=== PATIENT | female | born 1935 | race Caucasian/White ===

== ENCOUNTER 2020-03-20 20:24 | Inpatient (IN) | payer MEDICARE, OTHER ==
[~2020-03-20] VITALS: Ht 152.4 cm; Wt 50.8 kg
[2020-03-20] MEDS ORDERED: OLANZAPINE 10 MG VIAL IM ONE ×2 (20:31→20:45)
[2020-03-20] MEDS ORDERED: DIVA250T4 PO (20:56)
[2020-03-20] MEDS ORDERED: NA P133E RC (20:56)
[2020-03-20] MEDS ORDERED: FOLI1TAB16 PO (20:56)
[2020-03-20] MEDS ORDERED: BISA10SU61 RC (20:56)
[2020-03-20] MEDS ORDERED: METO25TA6 PO (20:56)
[2020-03-20] MEDS ORDERED: MAGN400O6 PO (20:56)
[2020-03-20] MEDS ORDERED: ACET-2605 PO (20:56)
[2020-03-20] MEDS ORDERED: GLUC1VIA IM (20:56)
[2020-03-20] MEDS ORDERED: [UNRECOGNIZED DRUG - CODE] OP (20:56)
[2020-03-20] MEDS ORDERED: APIX2.5T PO (20:56)
[2020-03-20] MEDS ORDERED: DIGO125T PO (20:56)
[2020-03-20] MEDS ORDERED: ASCO500C18 PO (20:56)
[2020-03-20] MEDS ORDERED: ATOR10TA PO (20:56)
[2020-03-20] MEDS ORDERED: ACET325C7 PO (20:56)
[2020-03-20] MEDS ORDERED: QUET25TA PO ×2 (20:56)
[2020-03-20] MEDS ORDERED: AMIN30LI31 PO (20:56)
[2020-03-20] MEDS ORDERED: LEVO112T5 PO (20:56)
[2020-03-20] MEDS ORDERED: diphenhydrAMINE 50 MG/1 ML VIAL IM ONE (21:00)
[2020-03-20] MEDS ORDERED: diphenhydrAMINE 50 MG/1 ML VIAL ONE (21:02)
[2020-03-20 21:14] LABS: BASOPHILS % (AUTO) 0.4 % (0.0-2.0); EOSINOPHILS # (AUTO) 0.1 K/uL (0.0-0.7); EOSINOPHILS % (AUTO) 1.5 % (0.0-7.0); HEMATOCRIT 25.1 % (31.2-41.9); HEMOGLOBIN 8.4 g/dL (10.9-14.3); LYMPHOCYTES # (AUTO) 3.2 K/uL (20.0-40.0); LYMPHOCYTES % (AUTO) 33.7 % (20.5-51.5); MEAN CORPUSCULAR HEMOGLOBIN 26.5 uug (24.7-32.8); MEAN CORPUSCULAR HGB CONC 33 g/dL (32.3-35.6); MEAN CORPUSCULAR VOLUME 79.2 fL (75.5-95.3); MONOCYTES # (AUTO) 1.1 K/uL (2.0-10.0); MONOCYTES % (AUTO) 11.9 % (0.0-11.0); NEUTROPHILS % (AUTO) 52.5 % (38.5-71.5); PLATELET COUNT (AUTO) 209 K/uL (179-408); RED BLOOD CELL COUNT(AUTO) 3.17 MIL/uL (3.63-4.92); WHITE BLOOD COUNT (AUTO) 9.5 K/uL (3.8-11.8)
[2020-03-20 21:15] LABS: CARBON DIOXIDE 24 mmol/L (21-32); CHLORIDE 105 mmol/L (98-107); CREATININE 1.5 mg/dL (0.6-1.3); GLUCOSE 123 mg/dL (74-106); POTASSIUM 4.3 mmol/L (3.5-5.1); UREA NITROGEN, BLOOD 37 mg/dL (7-18)
[2020-03-20 21:20] LABS: ALANINE AMINOTRANSFERASE 17 U/L (14-59); ALKALINE PHOSPHATASE 32 U/L (50-136); ASPARTATE AMINOTRANSFERASE 14 U/L (15-37); BILIRUBIN,DIRECT 0.1 mg/dL (0.0-0.2); BILIRUBIN,TOTAL 0.3 mg/dL (0.2-1.0); ETHANOL < 3 MG/DL (0-0); TOTAL PROTEIN, SERUM 6.9 g/dL (6.4-8.2)
[2020-03-20 21:21] LABS: ACETAMINOPHEN < 2.0 ug/mL (10-30)
[2020-03-20 21:28] LABS: THYROID STIMULATING HORMONE 11.344 mIU/mL (0.358-3.740)
--- NOTE | 2020-03-20 21:50 | NUR ---
Inserted narayan catheter, pt tolerated procedure well, urine sample collected, sent to lab.
[2020-03-20 22:07] LABS: *BILIRUBIN,URIN NEGATIVE (NEGATIVE); *CLARITY,URINE CLEAR (CLEAR); *COLOR,URINE YELLOW (YELLOW); *KETONES,URINE NEGATIVE (NEGATIVE); *UROBILINOGEN,URINE 0.2 E.U./dl (NORMAL); LEUKOCYTE ESTERASE ,URINE TRACE (NEGATIVE); NITRITE, URINE NEGATIVE (NEGATIVE); UGLUCOSE NEGATIVE (NEGATIVE)
[2020-03-20 22:08] LABS: *BLOOD, URINE TRACE INTACT (NEGATIVE)
[2020-03-20 22:13] LABS: *AMPHETAMINE, URINE NEGATIVE (NEGATIVE); *BARBITURATE, URINE NEGATIVE (NEGATIVE); *CANNABINOID, URINE NEGATIVE (NEGATIVE); *COCCAINE, URINE NEGATIVE (NEGATIVE); *OPIATE, URINE NEGATIVE (NEGATIVE); *PHENCYCLIDINE SCREEN,URINE NEGATIVE (NEGATIVE)
[2020-03-20 22:25] LABS: BACTERIA,URINE NONE SEEN /HPF (NONE SEEN); SQUAMOUS EPITHELIAL CELL,UR FEW /HPF (NONE SEEN)
--- NOTE | 2020-03-20 22:30 | NUR ---
Spoke with patient's daughter, stated patient's a few days ago and since then for 3 days patient has been restless. Daughter, Camilla Phillips, left her phone number .
--- NOTE | 2020-03-20 23:03 | NUR ---
Called Huong Long RN PET for pt psych eval.
[2020-03-21] MEDS ORDERED: HALOPERIDOL LACTATE 5 MG/1 ML VIAL IM ONE (01:45)
--- NOTE | 2020-03-21 02:21 | NUR ---
Amy martinez in ED - 03/21/20 at 0315 by HÉCTOR Pt medically cleared by Dr. Sharma.
--- NOTE | 2020-03-21 02:52 | NUR ---
Called [facility] to page Shelly Ervin NP.
--- NOTE | 2020-03-21 02:55 | NUR ---
Dr. Sharma on panel call with Shelly Ervin NP.
[2020-03-21] MEDS ORDERED: ALBUTEROL SULFATE 8 GM HFA.AER.AD IH PRN (03:00)
[2020-03-21] MEDS: CEFTRIAXONE 1 G in IV DEXTROSE 5% 50 ML IV SCH ×3 (03:00→09:01)
[2020-03-21] MEDS ORDERED: ONDANSETRON 4 MG/2 ML VIAL IV PRN (03:00)
[2020-03-21] MEDS ORDERED: ACETAMINOPHEN 650 MG SUPP.RECT RC PRN (03:00)
[2020-03-21] MEDS ORDERED: BISACODYL 10 MG SUPP.RECT RC PRN (03:15)
--- NOTE | 2020-03-21 04:30 | NUR ---
Pt in bed, no acute signs of distress, awake, talking to herself.
--- NOTE | 2020-03-21 06:44 | NUR ---
Pt in bed, no acute signs of distress, awake, talking to herself.
--- NOTE | 2020-03-21 07:11 | NUR ---
Report given to Kathy lima.
--- NOTE | 2020-03-21 07:11 | NUR ---
Financial Accounting Manager assumes care- patient is awake, confuse, talking loudly to self in her emmon[place] language, respiration:easy, for admission to telemetry room 320, pending 1:1 sitter & an accepting RN/CHICKEN HANDLER@the 3rd floor. Per previous RN (Edis's report), this patient needs IV line before sending to 3rd floor, monitored closely. Comfort and safety measures maintained.
--- NOTE | 2020-03-21 07:13 | NUR ---
Per RN Edis (previous RN), this patient is not medically cleared for geriatric psych admission hence patient will got to telemetry room 320 for acute encephalopathy.
--- NOTE | 2020-03-21 08:12 | NUR ---
Patient is getting more agitated, screaming louder and intensely talking to self in foreign language. Dr Villa notified. Repositioning done, sips of water given, therapeutic touch given. Patient's daughter was updated as well.
[2020-03-21] MEDS ORDERED: LORAZEPAM 2 MG/1 ML VIAL IM ONE (08:15)
[2020-03-21] MEDS ORDERED: OLANZAPINE 10 MG VIAL IM ONE ×2 (08:15→08:18)
[2020-03-21] MEDS ORDERED: LORAZEPAM 2 MG/1 ML VIAL ONE (08:18)
[2020-03-21] MEDS ORDERED: CEFTRIAXONE /D5W 50ML IVPB **ER PYXIS IV ONE (08:32)
[2020-03-21] MEDS ORDERED: CARBOXYMETHYLCELLULOSE SODIUM OP SCH (09:00)
[2020-03-21] MEDS ORDERED: Medication Not On Formulary EA (Apixaban (Eliquis) 2.5 MG) PO SCH (09:00)
[2020-03-21] MEDS ORDERED: Medication Not On Formulary EA (Ascorbic Acid (Vitamin C) 500 MG) PO SCH (09:00)
--- NOTE | 2020-03-21 09:00 | NUR ---
IV Rocephin given thru left hand g20 angiocatheter, no adverse rxn seen.
--- NOTE | 2020-03-21 09:25 | NUR ---
Pt arrived in RM 320 awake but confused. Pt doesn't follow commands. On RA with no SOB or distress noted at this time. IV on left hand 20g flushed and patent. On tele Afib. Swallow evaluation done, able to swallow apple sauce with guidance. On 1:1 sitter for safety. Bed locked in lowest position with siderails 3xup, pt trying to get out of bed.
[2020-03-21] MEDS ORDERED: ALBUTEROL SULFATE 2.5 MG/3 ML NEBU NEB PRN (09:30)
--- NOTE | 2020-03-21 10:30 | NUR ---
Dr. Gonzalez called in through zoom for consultation.
[2020-03-21 10:41] VITALS: BP 148/84
[2020-03-21] MEDS: LEVOTHYROXINE SODIUM 112 MCG TABLET PO SCH (10:47)
[2020-03-21] MEDS: DIVALPROEX 250 MG TABLET.DR PO SCH ×2 (10:47→17:09)
[2020-03-21] MEDS: METOPROLOL TARTRATE 25 MG TABLET PO SCH ×2 (10:48→20:55)
[2020-03-21] MEDS: FOLIC ACID 1 MG TABLET PO SCH (10:48)
[2020-03-21] MEDS: QUETIAPINE FUMARATE 25 MG TABLET PO SCH ×3 (10:48→20:26)
[2020-03-21] MEDS: ASCORBIC ACID 500 MG TABLET PO SCH (10:49)
[2020-03-21] MEDS: APIXABAN 5 MG TABLET PO SCH ×2 (10:50→20:27)
[2020-03-21 13:33] VITALS: BP 151/76
[2020-03-21] MEDS: POLYVINYL ALCOHOL OPHT DROPS 15 ML BOTTLE EACHEYE SCH ×2 (13:33→22:12)
[2020-03-21] MEDS: DIGOXIN 125 MCG TABLET PO SCH (13:33)
--- NOTE | 2020-03-21 18:00 | NUR ---
Pt in bed awake, confused on RA with no SOB or distress at this time. Pt able to tolerate pureed diet, aspiration precaution observed. On tele Afib with PVCs. IV on left hand 20g flushed and patent. On 1:1 sitter for safety, pt keeps moving on bed and sometimes trying to get out of bed. Bed locked in lowest position with siderails 2x up.
[2020-03-21] MEDS: IV NS 1000 ML 1,000 ML IV PRN (19:55)
[2020-03-21] MEDS: ATORVASTATIN 10 MG TABLET PO SCH (20:25)
[2020-03-21 23:56] VITALS: BP 147/70
[2020-03-22 06:00] VITALS: BP 129/59
[2020-03-22] MEDS: POLYVINYL ALCOHOL OPHT DROPS 15 ML BOTTLE EACHEYE SCH ×3 (06:02→22:00)
[2020-03-22] MEDS: LEVOTHYROXINE SODIUM 112 MCG TABLET PO SCH (06:02)
--- NOTE | 2020-03-22 06:15 | NUR ---
Pt asleep arousable to light pain, confused on RA with no SOB or distress at this time. On tele controlled Afib. IV on left hand 20g got infiltrated, removed, applied pressure d/t Eliquis. No signs of bleeding. Aspiration and safety precaution in place. Will endorse
[2020-03-22 07:04] LABS: BASOPHILS % (AUTO) 0.6 % (0.0-2.0); EOSINOPHILS # (AUTO) 0.3 K/uL (0.0-0.7); HEMOGLOBIN 9.6 g/dL (10.9-14.3); LYMPHOCYTES # (AUTO) 1.6 K/uL (20.0-40.0); LYMPHOCYTES % (AUTO) 31.2 % (20.5-51.5); MEAN CORPUSCULAR HEMOGLOBIN 26.3 uug (24.7-32.8); MEAN CORPUSCULAR HGB CONC 33 g/dL (32.3-35.6); MEAN CORPUSCULAR VOLUME 79.8 fL (75.5-95.3); MONOCYTES # (AUTO) 0.7 K/uL (2.0-10.0); MONOCYTES % (AUTO) 12.9 % (0.0-11.0); NEUTROPHILS # (AUTO) 2.6 K/uL (1.8-8.9); NEUTROPHILS % (AUTO) 50.3 % (38.5-71.5); PLATELET COUNT (AUTO) 194 K/uL (179-408); RED BLOOD CELL COUNT(AUTO) 3.64 MIL/uL (3.63-4.92); WHITE BLOOD COUNT (AUTO) 5.1 K/uL (3.8-11.8)
[2020-03-22 07:28] LABS: BILIRUBIN,TOTAL 0.6 mg/dL (0.2-1.0); CREATININE 0.8 mg/dL (0.6-1.3); PHOSPHOROUS 3.5 mg/dL (2.5-4.9); POTASSIUM 3.5 mmol/L (3.5-5.1); TOTAL PROTEIN, SERUM 6.8 g/dL (6.4-8.2)
--- NOTE | 2020-03-22 08:00 | NUR ---
RECEIVED PATIENT ASLEEP, AROUSABLE BY LIGHT PAIN. COVID 19 RESULTS 'NEGATIVE'. NO S/S OF DISTRESS OR SOB AT THIS TIME. CONTROLLED ATRIAL FIBRILLATION ON MONITOR AT 83 BPM. VSS. IV ON RIGHT FA 20 G, FLUSHING AND PATENT. SAFETY PRECAUTIONS IN PLACE.
[2020-03-22] MEDS: CEFTRIAXONE 1 G in IV DEXTROSE 5% 50 ML IV SCH (08:31)
[2020-03-22] MEDS: DIVALPROEX 250 MG TABLET.DR PO SCH ×3 (09:00→16:23)
[2020-03-22] MEDS: QUETIAPINE FUMARATE 25 MG TABLET PO SCH ×3 (09:00→21:00)
[2020-03-22] MEDS: APIXABAN 5 MG TABLET PO SCH ×3 (09:00→21:00)
[2020-03-22] MEDS: METOPROLOL TARTRATE 25 MG TABLET PO SCH ×3 (09:00→21:41)
[2020-03-22] MEDS: ASCORBIC ACID 500 MG TABLET PO SCH ×2 (09:00→10:01)
[2020-03-22] MEDS: FOLIC ACID 1 MG TABLET PO SCH ×2 (09:00→10:01)
[2020-03-22] MEDS ORDERED: ASCORBIC ACID 500 MG TABLET PO SCH (09:00)
--- NOTE | 2020-03-22 09:00 | NUR ---
0900 MEDICATIONS NOT GIVEN, PATIENT TOO LETHARGIC TO SWALLOW. DR. RODRIGUEZ MADE AWARE. WILL FOLLOW UP SWALLOW EVAL IN AM.
[2020-03-22 11:30] VITALS: BP 122/57
[2020-03-22] MEDS: DIGOXIN 125 MCG TABLET PO SCH (13:33)
--- NOTE | 2020-03-22 13:39 | NUR ---
MIDLINE INSERTION DONE OVER AT RIGHT UPPER ARM GZ 20
--- NOTE | 2020-03-22 13:40 | NUR ---
SEEN BY DR RODRIGUEZ AWARE OF PATIENT STATUS, WILL FOLLOW-UP SWALLOW EVAL IN AM
--- NOTE | 2020-03-22 13:52 | NUR ---
PATIENT STILL TO SEDATED. REMAINS SR ON MONITOR. SATURATING 98-99% ON RA. WARM AND DRY SKIN. AROUSABLE TO PAINFUL AND TACTILE STIMULI. WILL CONTINUE TO OBSERVE. IV FLUIDS INFUSING PER MD ORDER.
[2020-03-22 15:15] VITALS: BP 129/67
--- NOTE | 2020-03-22 16:23 | NUR ---
1700 MEDS NOT GIVEN PATIENT STILL TOO DROWSY TO TAKE MEDS PO. AWARE
--- NOTE | 2020-03-22 18:13 | NUR ---
RESTING WITH EYES CLOSED, EASILY AROUSED WITH PAINFUL STIMULI, WARM AND DRY SKIN. REMAINS CONTROLLED AFIB ON MONITOR.
[2020-03-22 19:30] VITALS: BP 127/58
--- NOTE | 2020-03-22 20:05 | NUR ---
Patient in bed asleep ,arousable with painful stimuli.On Ra saturating well at 97%.No s/s of distress noted.Midline in place on right upper arm and Iv site on Right hand patent and intact with Iv fluid NS running well at 90cc/hr.1:1 sitter at bedside for safety.
[2020-03-22] MEDS: ATORVASTATIN 10 MG TABLET PO SCH (21:40)
[2020-03-22] MEDS: IV NS 1000 ML 1,000 ML IV PRN (23:08)
[2020-03-23 00:15] VITALS: BP 147/73
--- NOTE | 2020-03-23 00:24 | NUR ---
Patient awake.Continue on tele monitor.Noted with periods of restlessness.Trying to get out of bed and pulling IV. Medications and snacks given.Tolerated well.HOB remained elevated.Aspiration precaution observed at all times.Changed and repositioned patient for comfort.Will continue to monitor.
[2020-03-23] MEDS: QUETIAPINE FUMARATE 25 MG TABLET PO SCH ×3 (00:48→16:17)
[2020-03-23] MEDS: ACETAMINOPHEN 325 MG TABLET PO PRN ×2 (05:16→10:34)
[2020-03-23] MEDS: POLYVINYL ALCOHOL OPHT DROPS 15 ML BOTTLE EACHEYE SCH ×3 (05:31→21:31)
[2020-03-23] MEDS: LEVOTHYROXINE SODIUM 112 MCG TABLET PO SCH (06:03)
[2020-03-23 06:04] VITALS: BP 124/78
[2020-03-23 07:20] LABS: BASOPHILS % (AUTO) 0.4 % (0.0-2.0); EOSINOPHILS # (AUTO) 0.2 K/uL (0.0-0.7); EOSINOPHILS % (AUTO) 2.5 % (0.0-7.0); HEMATOCRIT 25.4 % (31.2-41.9); HEMOGLOBIN 8.3 g/dL (10.9-14.3); LYMPHOCYTES # (AUTO) 1.6 K/uL (20.0-40.0); LYMPHOCYTES % (AUTO) 25.8 % (20.5-51.5); MEAN CORPUSCULAR HGB CONC 33 g/dL (32.3-35.6); MEAN CORPUSCULAR VOLUME 79.9 fL (75.5-95.3); MONOCYTES # (AUTO) 0.6 K/uL (2.0-10.0); MONOCYTES % (AUTO) 10.3 % (0.0-11.0); NEUTROPHILS # (AUTO) 3.7 K/uL (1.8-8.9); PLATELET COUNT (AUTO) 176 K/uL (179-408); RED BLOOD CELL COUNT(AUTO) 3.18 MIL/uL (3.63-4.92); WHITE BLOOD COUNT (AUTO) 6.1 K/uL (3.8-11.8)
[2020-03-23 07:49] LABS: MAGNESIUM 1.7 mg/dL (1.8-2.4); PHOSPHOROUS 2.6 mg/dL (2.5-4.9); POTASSIUM 3.9 mmol/L (3.5-5.1)
--- NOTE | 2020-03-23 08:00 | NUR ---
AWAKE ALERT BUT CONFUSED X3, RESTLESS AND AGITATED AND TRYING TO PULL LINES IN SPITE OF SITTER AT BEDSIDE. NO SS OF PAIN OR DISTRESS. CLOSELY MONITORED SR ON MONITOR
[2020-03-23] MEDS: CEFTRIAXONE 1 G in IV DEXTROSE 5% 50 ML IV SCH (08:25)
[2020-03-23] MEDS: FOLIC ACID 1 MG TABLET PO SCH (08:25)
[2020-03-23] MEDS: OLANZAPINE ZYDIS 5 MG TAB.RAPDIS PO PRN ×4 (08:25→22:55)
[2020-03-23] MEDS: ASCORBIC ACID 500 MG TABLET PO SCH (08:26)
[2020-03-23] MEDS: DIVALPROEX 250 MG TABLET.DR PO SCH ×2 (08:26→16:17)
[2020-03-23] MEDS: METOPROLOL TARTRATE 25 MG TABLET PO SCH ×2 (08:31→20:11)
[2020-03-23] MEDS: APIXABAN 5 MG TABLET PO SCH ×2 (08:37→20:08)
[2020-03-23] MEDS: IV NS 1000 ML 1,000 ML IV PRN (10:31)
[2020-03-23] MEDS: MAGNESIUM SULFATE/D5W 100 ML IV SCH ×2 (10:34→12:21)
--- NOTE | 2020-03-23 12:00 | NUR ---
spoked with daughter regarding patient status and need for mittens, daughter consented for safety
[2020-03-23] MEDS: DIGOXIN 125 MCG TABLET PO SCH (12:24)
[2020-03-23 12:41] VITALS: BP 144/62
[2020-03-23 15:28] VITALS: BP 141/58
[2020-03-23 19:30] VITALS: BP 128/98
[2020-03-23] MEDS: ATORVASTATIN 10 MG TABLET PO SCH (20:05)
[2020-03-23] MEDS: OLANZAPINE ZYDIS 5 MG TAB.RAPDIS PO SCH (20:05)
--- NOTE | 2020-03-23 21:30 | NUR ---
Patient in bed squirming around, not sleeping. No acute distress noted. Confused, not able to make needs known, mumbling. On Ra saturating well at 97%. Vitals WNL. ROMAN Midline running 90cc/hr NS. and Iv site on Right hand Infiltrated D/c. 1:1 sitter at bedside for safety. All medications administered, aspiration precautions, crushed and administered with apple sauce. will continue to monitor.
--- NOTE | 2020-03-23 22:58 | NUR ---
Patient awake, Noted to be restless.Trying to get out of bed and very agitated. Administered Zyprexa PRN Aspiration precaution observed at all times.Changed and repositioned patient for comfort.Will continue to monitor.
[2020-03-24] VITALS: BP 151/87
[2020-03-24 06:00] VITALS: BP 151/97
[2020-03-24] MEDS: LEVOTHYROXINE SODIUM 112 MCG TABLET PO SCH (06:09)
[2020-03-24] MEDS: POLYVINYL ALCOHOL OPHT DROPS 15 ML BOTTLE EACHEYE SCH ×3 (06:09→22:32)
--- NOTE | 2020-03-24 07:45 | NUR ---
RECEIVED PATIENT IN AWAKE ALERT TO SELF COOPERATIVE SHE IS NON VERBAL AT THIS TIME HAS ABRAHAM BRAVO HAS A SITTER QAT HER BEDSIDE FOR SAFETY ON ROOM AIR WITH NO SOB AT THIS TIME MID LINE SEEMS TO BE AN ISSUE PUMP BEEPING EVEN AFTER RESETTING WILL ATTEMPT TO RETAPE SOON POSSIBLE
--- NOTE | 2020-03-24 08:35 | NUR ---
SNF Contact: SW called [facility] ([phone]) and spoke to Kylah in the Admissions Department who stated that the pt is currently on a bed hold that has three days remaining (until 03/27/20). She stated that if the pt is not ready at the time of the bed hold, then they will accept the pt back if they have beds available at their facility.
[2020-03-24] MEDS: CEFTRIAXONE 1 G in IV DEXTROSE 5% 50 ML IV SCH (08:43)
[2020-03-24] MEDS: ASCORBIC ACID 500 MG TABLET PO SCH (08:44)
[2020-03-24] MEDS: DIVALPROEX 250 MG TABLET.DR PO SCH ×3 (08:44→16:58)
[2020-03-24] MEDS: OLANZAPINE ZYDIS 5 MG TAB.RAPDIS PO SCH ×2 (08:44→22:31)
[2020-03-24] MEDS: FOLIC ACID 1 MG TABLET PO SCH (08:44)
[2020-03-24] MEDS: METOPROLOL TARTRATE 25 MG TABLET PO SCH ×2 (08:47→22:31)
[2020-03-24] MEDS: APIXABAN 5 MG TABLET PO SCH ×2 (08:49→22:30)
--- NOTE | 2020-03-24 08:56 | NUR ---
AWAKE TOLERATING BREAKFAST SHE IS COMPLIANT WITH MEDICATIONS AND CARE AT THIS TIME WILL CONTINUE TO OBSERVE.
[2020-03-24 10:00] VITALS: BP 139/77
--- NOTE | 2020-03-24 12:35 | NUR ---
WOUND CARE CONSULT: PT SEEN FOR SKIN ASSESSMENT AND NOTED TO HAVE SACRAL SCAR, PRESENT ON ADMISSION. RECOMMENDATIONS MADE FOR SKIN PROTECTION. DISCUSSED WITH NURSING STAFF. WILL SEE PRN. IN AGREEMENT WITH PLAN OF CARE.
[2020-03-24] MEDS: DIGOXIN 125 MCG TABLET PO SCH (13:06)
[2020-03-24 14:44] VITALS: BP 141/83
--- NOTE | 2020-03-24 15:30 | NUR ---
CALL RECEIVED FROM DR SMALLWOOD AND UPDATED HIM ON PATIENTS BEHAVIOR SHE IS STILL AGITATED AND SOMEWHAT RESTLESS SHE IS COMPLIANT WITH MEDICATIONS AND CARE WILL CONTINUE TO PROVIDE SAFE AND THERAPEUTIC ENVIRONMENT AT ALL TIMES.
[2020-03-24] MEDS: IV NS 1000 ML 1,000 ML IV PRN (15:42)
[2020-03-24 17:48] VITALS: BP 109/71
--- NOTE | 2020-03-24 18:00 | NUR ---
RESTING WITH NO CHANGES IN PREVIOUS ASSESSMENTS.
[2020-03-24 19:30] VITALS: BP 109/71
--- NOTE | 2020-03-24 20:00 | NUR ---
Patient in bed still shows signs of agitation, squirming, No acute distress noted. Confused, not able to make needs known. On Ra saturating well at 98%, no SOB noted. Vitals WNL. ROMAN Midline running 90cc/hr NS. 1:1 sitter at bedside for safety. Will continue to monitor.
[2020-03-24] MEDS: ACETAMINOPHEN 325 MG TABLET PO PRN (22:29)
[2020-03-24] MEDS: ATORVASTATIN 10 MG TABLET PO SCH (22:30)
--- NOTE | 2020-03-24 23:30 | NUR ---
All medications administered,crushed and given with apple sauce, aspiration precautions maintained. Safety measure in place. Patient kept clean dry and comfortable. Repositioned on left lateral side. All needs attended to.
[2020-03-25] VITALS: BP 141/61
[2020-03-25] MEDS: OLANZAPINE ZYDIS 5 MG TAB.RAPDIS PO PRN (01:04)
--- NOTE | 2020-03-25 01:05 | NUR ---
Patient is not sleeping and still restless administered PRN Zyprexa. will monitor for effectiveness
[2020-03-25] MEDS: ZOLPIDEM 5 MG TABLET PO PRN (02:14)
--- NOTE | 2020-03-25 02:15 | NUR ---
Zyprexa not effective notified DR. Shelly Ervin that pt is restless/ agitated. New order Ambien 5mg PRN, administered will monitor for effective.
[2020-03-25] MEDS: IV NS 1000 ML 1,000 ML IV PRN ×2 (02:55→16:11)
--- NOTE | 2020-03-25 04:12 | NUR ---
No new changes, pt continues to move around in bed, very restless. Repositioned for comfort, changed, cleaned and kept dry. Safety measure in place. Snacks provided, hydration provided.
[2020-03-25 06:00] VITALS: BP 146/54
[2020-03-25] MEDS: LEVOTHYROXINE SODIUM 112 MCG TABLET PO SCH (06:19)
[2020-03-25] MEDS: POLYVINYL ALCOHOL OPHT DROPS 15 ML BOTTLE EACHEYE SCH ×3 (06:20→21:24)
--- NOTE | 2020-03-25 07:00 | NUR ---
RECEIVED PATIENT IN BED AWAKE SITTER AT BED SIDE VS ARE STABLE
[2020-03-25 07:30] VITALS: BP 161/76
[2020-03-25] MEDS: OLANZAPINE ZYDIS 5 MG TAB.RAPDIS PO SCH ×2 (07:33→21:21)
[2020-03-25] MEDS: METOPROLOL TARTRATE 25 MG TABLET PO SCH ×2 (07:34→21:21)
[2020-03-25] MEDS: DIVALPROEX 250 MG TABLET.DR PO SCH ×3 (07:34→16:05)
[2020-03-25] MEDS: FOLIC ACID 1 MG TABLET PO SCH (07:34)
[2020-03-25] MEDS: ASCORBIC ACID 500 MG TABLET PO SCH (07:34)
[2020-03-25] MEDS: APIXABAN 5 MG TABLET PO SCH ×2 (07:35→21:22)
[2020-03-25] MEDS: CEFTRIAXONE 1 G in IV DEXTROSE 5% 50 ML IV SCH (07:59)
[2020-03-25 10:04] LABS: BASOPHILS % (AUTO) 0.4 % (0.0-2.0); EOSINOPHILS # (AUTO) 0.3 K/uL (0.0-0.7); EOSINOPHILS % (AUTO) 4.7 % (0.0-7.0); HEMATOCRIT 26.7 % (31.2-41.9); HEMOGLOBIN 8.8 g/dL (10.9-14.3); LYMPHOCYTES # (AUTO) 1.4 K/uL (20.0-40.0); MEAN CORPUSCULAR HEMOGLOBIN 26.4 uug (24.7-32.8); MEAN CORPUSCULAR HGB CONC 33 g/dL (32.3-35.6); MEAN CORPUSCULAR VOLUME 80.1 fL (75.5-95.3); MONOCYTES # (AUTO) 0.6 K/uL (2.0-10.0); NEUTROPHILS # (AUTO) 3.9 K/uL (1.8-8.9); NEUTROPHILS % (AUTO) 62.9 % (38.5-71.5); PLATELET COUNT (AUTO) 190 K/uL (179-408); RED BLOOD CELL COUNT(AUTO) 3.33 MIL/uL (3.63-4.92); WHITE BLOOD COUNT (AUTO) 6.3 K/uL (3.8-11.8)
[2020-03-25 10:16] LABS: BILIRUBIN,TOTAL 0.3 mg/dL (0.2-1.0); CREATININE 0.8 mg/dL (0.6-1.3); MAGNESIUM 1.8 mg/dL (1.8-2.4); PHOSPHOROUS 3.1 mg/dL (2.5-4.9); POTASSIUM 4.2 mmol/L (3.5-5.1); TOTAL PROTEIN, SERUM 6.6 g/dL (6.4-8.2)
[2020-03-25] MEDS: DIGOXIN 125 MCG TABLET PO SCH (12:35)
[2020-03-25 12:36] VITALS: BP 147/65
[2020-03-25 16:00] VITALS: BP 152/66
--- NOTE | 2020-03-25 17:46 | NUR ---
No new changes, pt continues to move around in bed, very restless. Repositioned for comfort, changed, cleaned and kept dry. Safety measure in place. sitter at bed side
[2020-03-25 20:00] VITALS: BP 156/83
--- NOTE | 2020-03-25 20:00 | NUR ---
Received patient in bed with 1:1 sitter at bedside for safety. Patient is restless moving around in bed, but easy to redirect at this time. A/Ox1. No signs of acute distress noted. No s/s of pain or SOB. IVF running on right upper midline. Patient cleaned and repositioned. Daughter updated on patient condition. Safety measures initiated.
[2020-03-25] MEDS: ATORVASTATIN 10 MG TABLET PO SCH (21:21)
[2020-03-26] MEDS: ZOLPIDEM 5 MG TABLET PO PRN (01:41)
[2020-03-26] MEDS: IV NS 1000 ML 1,000 ML IV PRN (03:07)
[2020-03-26] MEDS: POLYVINYL ALCOHOL OPHT DROPS 15 ML BOTTLE EACHEYE SCH ×2 (06:23→14:35)
[2020-03-26] MEDS: LEVOTHYROXINE SODIUM 112 MCG TABLET PO SCH (06:23)
--- NOTE | 2020-03-26 07:30 | NUR ---
Awake, confused, restless. IVF infusing. 1:1 sitter at bedside.
[2020-03-26] MEDS: ASCORBIC ACID 500 MG TABLET PO SCH (08:23)
[2020-03-26] MEDS: OLANZAPINE ZYDIS 5 MG TAB.RAPDIS PO SCH (08:23)
[2020-03-26] MEDS: FOLIC ACID 1 MG TABLET PO SCH (08:23)
[2020-03-26] MEDS: CEFTRIAXONE 1 G in IV DEXTROSE 5% 50 ML IV SCH (08:23)
[2020-03-26] MEDS: DIVALPROEX 250 MG TABLET.DR PO SCH ×2 (08:23→12:44)
[2020-03-26] MEDS: METOPROLOL TARTRATE 25 MG TABLET PO SCH (08:28)
[2020-03-26] MEDS: ACETAMINOPHEN 325 MG TABLET PO PRN (08:41)
[2020-03-26] MEDS: APIXABAN 5 MG TABLET PO SCH (09:00)
[2020-03-26] MEDS ORDERED: METOPROLOL TARTRATE 25 MG TABLET PO ONE (11:45)
[2020-03-26] MEDS ORDERED: FUROSEMIDE 20 MG/2 ML VIAL IV ONE (11:45)
[2020-03-26] MEDS ORDERED: PIPERACILLIN SODIUM/TAZOBACTAM 3.375 G in IV DEXTROSE 5% 50 ML IV ONE (12:00)
[2020-03-26 12:46] VITALS: BP 147/64
[2020-03-26] MEDS: DIGOXIN 125 MCG TABLET PO SCH (12:46)
[2020-03-26] MEDS: OLANZAPINE ZYDIS 5 MG TAB.RAPDIS PO PRN (12:46)
[2020-03-26] MEDS ORDERED: DIVA250T4 PO (14:55)
[2020-03-26] MEDS ORDERED: ACET325T53 PO (14:55)
[2020-03-26] MEDS ORDERED: METO50TA16 PO (14:55)
[2020-03-26] MEDS ORDERED: LEVO125T8 PO (14:55)
[2020-03-26] MEDS ORDERED: OLAN5TAB6 PO ×2 (14:55)
[2020-03-26] MEDS ORDERED: PIPE3.379 IV (14:55)
[2020-03-26] MEDS ORDERED: FURO-152 PO (14:55)
[2020-03-26] MEDS ORDERED: ACID1TAB4 PO (14:58)
[2020-03-26] MEDS ORDERED: FERR325T28 PO (15:00)
--- NOTE | 2020-03-26 17:00 | NUR ---
Pt with discharge order to SNF. Report given to Marla Heredia at [facility]. Daughter Camilla is aware and kept up to date with proceedings. Discharged per [facility], in stable condition, not in distress, afebrile. Right Upper Arm Midline intact.
[2020-03-26] MEDS ORDERED: PIPERACILLIN SODIUM/TAZOBACTAM 3.37 G in IV DEXTROSE 5% 100 ML IV SCH (20:00)
[2020-03-26] MEDS ORDERED: METOPROLOL TARTRATE 50 MG TABLET PO SCH (21:00)
== END 2020-03-26 17:39 | DRG 871 ==
LOC: ER 20:27 → TELE3 03-21 09:16 → MEDSURG3 03-25 14:30
PROVIDERS: ADMIT Student in an Organized Health Care Education/Training Program; ATTEND Internal Medicine
DX: A41.9 Sepsis, unspecified organism (principal); N17.0 Acute kidney failure with tubular necrosis; G92 Toxic encephalopathy; J69.0 Pneumonitis due to inhalation of food and vomit; I50.33 Acute on chronic diastolic (congestive) heart failure; E43 Unspecified severe protein-calorie malnutrition; N39.0 Urinary tract infection, site not specified; D68.69 Other thrombophilia; F25.9 Schizoaffective disorder, unspecified; Z87.440 Personal history of urinary (tract) infections; I48.91 Unspecified atrial fibrillation; G47.00 Insomnia, unspecified; E88.09 Other disorders of plasma-protein metabolism, not elsewhere classified; E03.9 Hypothyroidism, unspecified; L89.159 Pressure ulcer of sacral region, unspecified stage; F41.9 Anxiety disorder, unspecified; M81.0 Age-related osteoporosis without current pathological fracture; E11.9 Type 2 diabetes mellitus without complications; I11.0 Hypertensive heart disease with heart failure; F01.50 Vascular dementia, unspecified severity, without behavioral disturbance, psychotic disturbance, mood disturbance, and anxiety; G30.9 Alzheimer's disease, unspecified; F02.80 Dementia in other diseases classified elsewhere, unspecified severity, without behavioral disturbance, psychotic disturbance, mood disturbance, and anxiety; M62.50 Muscle wasting and atrophy, not elsewhere classified, unspecified site; Z88.2 Allergy status to sulfonamides; D50.9 Iron deficiency anemia, unspecified; M19.90 Unspecified osteoarthritis, unspecified site; I34.0 Nonrheumatic mitral (valve) insufficiency; H40.9 Unspecified glaucoma
CPT/HCPCS: 36415; 70030-TC; 71045; 80307; 83550; 83605; 83615; 83735; 84100; 84443; 85025; 86140; 87086; 93005; 93307; A4663; C1758; G0378; G0480; G0480-TC; J0696; J1200; J1940; J2060; J2358; J2543; J3475; J3490; J7030; J7060; U0003-CS